=== PATIENT | male | born 1955 | race Caucasian/White ===

== ENCOUNTER 2021-11-21 05:37 | Inpatient (IN) | payer MEDICARE ==
[2021-11-13 13:49] LABS: BASOPHILS % (AUTO) 0.5 % (0-1); EOSINOPHILS # (AUTO) 0.1 X10'3 (0-0.9); EOSINOPHILS % (AUTO) 1.2 % (0-6); HEMATOCRIT 46.6 % (42.0-52.0); HEMOGLOBIN 16.1 g/dl (14.0-17.9); LYMPHOCYTES # (AUTO) 1.8 X10'3 (1.1-4.8); LYMPHOCYTES % (AUTO) 26.8 % (21-51); MEAN CORPUSCULAR HEMOGLOBIN 32.1 PG (27.0-31.0); MEAN CORPUSCULAR HGB CONC 34.5 g/dL (33.0-36.5); MEAN CORPUSCULAR VOLUME 93.1 FL (78-98); MEAN PLATELET VOLUME 7.9 FL (7.4-10.4); MONOCYTES # (AUTO) 0.5 X10'3 (0-0.9); NEUTROPHILS # (AUTO) 4.3 X10'3 (1.8-7.7); NEUTROPHILS % (AUTO) 64.5 % (42-75); PLATELET COUNT 208 X10'3 (140-440); RED CELL DISTRIBUTION WIDTH 13.1 % (11.5-14.5); WHITE BLOOD COUNT 6.6 X10'3 (4.5-11.0)
[2021-11-13 14:06] LABS: ALANINE AMINOTRANSFERASE 23 U/L (12-78); ALBUMIN 4.4 G/DL (3.4-5.0); ALBUMIN/GLOBULIN RATIO 1.2 (1.1-1.5); ALKALINE PHOSPHATASE 50 IU/L (46-116); ANION GAP 14 (8-16); ASPARTATE AMINO TRANSFERASE 25 U/L (10-37); BILIRUBIN,TOTAL 0.5 MG/DL (0.1-1.0); BLOOD UREA NITROGEN 25 MG/DL (7-18); BUN/CREATININE RATIO 23.8 (5.4-32.0); CALCIUM 9.3 MG/DL (8.5-10.1); CHLORIDE 107 MMOL/L (99-107); CREATININE 1.05 MG/DL (0.60-1.10); GLUCOSE 86 MG/DL (70-104); POTASSIUM 4.1 MMOL/L (3.5-5.1); SODIUM 140 MMOL/L (135-145); TOTAL CARBON DIOXIDE 18.8 MMOL/L (24-32); eGFR 71 ML/MIN
[2021-11-21] VITALS (24 sets, daily range): BP systolic 101–159; BP diastolic 59–86
[~2021-11-21] VITALS: Ht 180.3 cm; Wt 98.4 kg
[~2021-11-21 05:37] MED LIST: ACET-1025 PO; IBUP-1984 PO; SUMA50TA PO; VANCOMYCIN INJ 1000 MG in NORMAL SALINE 250ml IV.SOLN IV ONE; cefazolin/dext.iso 2gm/50ml IV ONE; famotidine 20mg tablet PO ONE; ringers solution, lacted 1,000 ML IV SCH; tranexamic acid 650mg tablet PO ONE
[2021-11-21] MEDS ORDERED: ROPIVAcaine 0.5% (5mg/ml) 30ml vial ONE ×2 (06:47→10:53)
[2021-11-21] MEDS ORDERED: ketorolac trometh. 30mg/ml inj. ONE (06:48)
[2021-11-21] MEDS ORDERED: tetracaine 1% (10mg/ml) pres. free inj. ONE (07:42)
[2021-11-21] MEDS ORDERED: MIDAZolam 1mg/ml 10ml vial ONE (07:45)
[2021-11-21] MEDS ORDERED: fentaNYL/PF 50MCG/1 ML 2ML syringe ONE (07:45)
[2021-11-21] MEDS ORDERED: ondansetron/PF 4mg/2ml inj IV PRN ×2 (08:55→10:55)
[2021-11-21] MEDS ORDERED: morphine 4 MG/ML inj SYRINge IV PRN (08:55)
[2021-11-21] MEDS ORDERED: ringers solution, lacted 1,000 ML IV SCH (08:55)
[2021-11-21] MEDS ORDERED: proCHLORperazine 10 MG/2 ml inj IV PRN (08:55)
[2021-11-21] MEDS ORDERED: meperidine/PF 25mg/ml syringe IV PRN ×3 (08:55)
[2021-11-21] MEDS ORDERED: morphine 2 MG/ML inj. syringe IV PRN (08:55)
[2021-11-21] MEDS ORDERED: propofol inj 20 ML IV ONE ×2 (10:53)
[2021-11-21] MEDS ORDERED: HYDROmorphone inj. 0.5 MG/0.5 ML DISP.SYRIN IV PRN (10:55)
[2021-11-21] MEDS ORDERED: ibuprofen tablet 400 MG TABLET PO PRN (10:55)
[2021-11-21] MEDS ORDERED: HYDROmorphone 1 mg/ml syringe IV PRN (10:55)
[2021-11-21] MEDS ORDERED: magnesium hydroxide 30ml (MOM) UD suspension PO PRN (10:55)
[2021-11-21] MEDS: potassium cl 20mEq in 1/2 NS 1,000 ML IV SCH ×2 (10:55→17:01)
[2021-11-21] MEDS ORDERED: diphenhydrAMINE 25mg capsule PO PRN ×2 (10:55)
[2021-11-21] MEDS ORDERED: bisacodyl 10mg suppository rectal RC PRN (10:55)
[2021-11-21] MEDS ORDERED: non-formulary drug (Acetaminophen (Tylenol Extra Strength) 2 TAB) PO PRN (10:55)
[2021-11-21] MEDS ORDERED: acetaminophen 325mg tablet PO PRN (10:55)
[2021-11-21] MEDS ORDERED: oxyCODONE IR 5mg (immed. release) tablet PO PRN (10:55)
--- NOTE | 2021-11-21 10:57 | NUR ---
Received from OR via , accompanied by Anesthesiologist DR LANG and report given by Anesthesiolgist. PT PRESENT WITH 20G LEFT HAND, GALLARDO CATHETER, DRESSING ON LEFT KNEE DRY AND INTACT WITH POWDER PAC. VSS Addendum: 11/21/21 at 1124 by Ritu Sewell RN, RN Amended: Links added.
--- NOTE | 2021-11-21 11:00 | NUR ---
PT CAME OUT OF THE OR WITH FC WITH ZERO OUTPUT. GALLARDO CATHETER WAS FLUSHED WITH 100 MLS OF WARM STRERILE SALLINE, URINE IS NOW FLOWING FROM FC, COLOR IS BLOOD TINGED URINE. Addendum: 11/21/21 at 1142 by Ritu Sewell RN, RN Amended: Links added.
[2021-11-21] MEDS ORDERED: SUMAtriptan 25 MG tablet PO PRN (11:05)
[2021-11-21 11:12] LABS: APPEARANCE,SYNOVIAL FLUID HAZY; COLOR,SYNOVIAL FLUID YELLOW
[2021-11-21 11:13] LABS: LYMPHOCYTES,SYNOVIAL FLUID 85 % (0-75); MONOCYTES,SYNOVIAL FLUID 10 % (0-0); NEUTROPHILS,SYNOVIAL FLUID 5 % (0-25); SYN RBC 330 /CU MM (0); SYN WBC 470 /CU MM (0-200)
--- NOTE | 2021-11-21 12:57 | NUR ---
Report called to receiving nurse KATIE BLANCHARD. Transferred via [facility]ED Belongings SENT TO PT ROOM 340A . Special Issues communicated to receiving nurse. Addendum: 11/21/21 at 1303 by Ritu Sewell RN RN Amended: Links added.
--- NOTE | 2021-11-21 13:20 | NUR ---
1310 Received Pt via bed to room 340A but should have gone to 348A. pt was changed to new room. Bed Low, VSS, call light in reach. Oriented to room & POC. Left kne with no visible bleeding. wrap and ICE in place. Pt rates pain 8/ but just received Demoerol prior to coming to unit. Will monitor and treat per orders.
[2021-11-21] MEDS: acetaminophen 325mg tablet PO SCH ×2 (14:15→21:08)
[2021-11-21] MEDS: ceFAZolin/D5W- 1GM premix 50 ML IV SCH (17:01)
--- NOTE | 2021-11-21 18:40 | NUR ---
Patient in room [facility]. I have received report from Jennifer BLACNHARD and had the opportunity to ask questions and assume patient care.
--- NOTE | 2021-11-21 18:52 | NUR ---
Problems reprioritized. Patient report given, questions answered & plan of care reviewed with SANTO Chapman.
[2021-11-21] MEDS ORDERED: vancomycin/NS 1 GM ADD-VANTAGE 250 ML IV SCH (20:00)
[2021-11-21] MEDS: sennosides 8.6mg tablet PO SCH (21:09)
[2021-11-21] MEDS: oxyCODONE IR 5mg (immed. release) tablet PO PRN (21:12)
[2021-11-22] MEDS: ceFAZolin/D5W- 1GM premix 50 ML IV SCH (00:09)
[2021-11-22] MEDS: potassium cl 20mEq in 1/2 NS 1,000 ML IV SCH (02:33)
[2021-11-22] MEDS: acetaminophen 325mg tablet PO SCH ×4 (02:34→20:26)
[2021-11-22] MEDS: oxyCODONE IR 5mg (immed. release) tablet PO PRN (06:22)
--- NOTE | 2021-11-22 06:40 | NUR ---
Problems reprioritized. Patient report given, questions answered & plan of care reviewed with Xu BLANCHARD.
--- NOTE | 2021-11-22 06:52 | NUR ---
Patient in room [facility]. I have received report from kelle watkins and had the opportunity to ask questions and assume patient care.
[2021-11-22 07:08] LABS: BASOPHILS % (AUTO) 0.2 % (0-1); EOSINOPHILS % (AUTO) 0 % (0-6); HEMATOCRIT 34.7 % (42.0-52.0); HEMOGLOBIN 12.2 g/dl (14.0-17.9); LYMPHOCYTES # (AUTO) 0.9 X10'3 (1.1-4.8); LYMPHOCYTES % (AUTO) 8.5 % (21-51); MEAN CORPUSCULAR HEMOGLOBIN 32.4 PG (27.0-31.0); MEAN CORPUSCULAR HGB CONC 35.1 g/dL (33.0-36.5); MEAN CORPUSCULAR VOLUME 92.3 FL (78-98); MEAN PLATELET VOLUME 8.6 FL (7.4-10.4); MONOCYTES # (AUTO) 1.2 X10'3 (0-0.9); MONOCYTES % (AUTO) 12.2 % (2-12); NEUTROPHILS % (AUTO) 79.1 % (42-75); PLATELET COUNT 208 X10'3 (140-440); RED BLOOD COUNT 3.76 X10'6 (4.70-6.10); RED CELL DISTRIBUTION WIDTH 13.1 % (11.5-14.5); WHITE BLOOD COUNT 10.1 X10'3 (4.5-11.0)
[2021-11-22 07:52] LABS: ANION GAP 9 (8-16); CHLORIDE 105 MMOL/L (99-107); POTASSIUM 4.4 MMOL/L (3.5-5.1); SODIUM 140 MMOL/L (135-145); TOTAL CARBON DIOXIDE 25.8 MMOL/L (24-32)
[2021-11-22 08:00] VITALS: BP 119/55
[2021-11-22] MEDS: aspirin 325mg tablet PO SCH (08:44)
[2021-11-22 11:00] VITALS: BP 129/67
[2021-11-22 11:49] LABS: CLARITY,URINE CLOUDY (Clear); COLOR,URINE YELLOW (Yellow); GLUCOSE, URINE NEGATIVE (Neg); KETONES,URINE NEGATIVE (Neg); LEUKOCYTE ESTERASE ,URINE NEGATIVE (Neg); NITRITES, URINE NEGATIVE (Neg); OCCULT BLOOD,URINE LARGE (Neg); PH,URINE 5.5 (4.8-8.0); PROTEIN,URINE 100 mg/dl (Neg); UROBILINOGEN,URINE 0.2 E.U/dL (0.2-1.0)
--- NOTE | 2021-11-22 11:50 | NUR ---
pt bladder scanned per PA chestney, had 430 ml in bladder will straight cath pt.
[2021-11-22] MEDS ORDERED: tamsulosin 0.4mg capsule PO STA (12:07)
[2021-11-22 12:14] LABS: UA COLLECTION TYPE NON-SPECIFIED
[2021-11-22 12:15] LABS: BACTERIA,URINE FEW /HPF (Neg); MUCUS STRANDS MODERATE /LPF (Neg); RBC,URINE 50-100 /HPF (0-2); SQUAMOUS EPITHELIAL CELL,UR FEW /LPF (FEW)
[2021-11-22 12:16] LABS: AMORPHOUS URATES 1+
--- NOTE | 2021-11-22 15:30 | NUR ---
straight cath pt unsuccessful unable to get urine out. ZARIA shane aware and called urologist josh to follow up on the pt.
[2021-11-22] MEDS ORDERED: LIDOcaine 2% 10ml TOPICAL JELLY (Urojet) MM ONE (16:30)
--- NOTE | 2021-11-22 18:34 | NUR ---
Problems reprioritized. Patient report given, questions answered & plan of care reviewed with Tati BLANCHARD.
[2021-11-22 20:00] VITALS: BP 115/60
[2021-11-22] MEDS: sennosides 8.6mg tablet PO SCH (20:25)
[2021-11-22] MEDS: celeCOXIB 100mg capsule PO SCH (20:27)
[2021-11-23] VITALS: BP 112/58
[2021-11-23] MEDS: acetaminophen 325mg tablet PO SCH ×2 (02:00→07:57)
[2021-11-23 06:10] LABS: BASOPHILS % (AUTO) 0.2 % (0-1); EOSINOPHILS % (AUTO) 0 % (0-6); HEMATOCRIT 27.4 % (42.0-52.0); HEMOGLOBIN 9.8 g/dl (14.0-17.9); LYMPHOCYTES # (AUTO) 1.7 X10'3 (1.1-4.8); LYMPHOCYTES % (AUTO) 14.5 % (21-51); MEAN CORPUSCULAR HEMOGLOBIN 32.7 PG (27.0-31.0); MEAN CORPUSCULAR HGB CONC 35.6 g/dL (33.0-36.5); MEAN CORPUSCULAR VOLUME 91.9 FL (78-98); MEAN PLATELET VOLUME 8.5 FL (7.4-10.4); MONOCYTES # (AUTO) 1.2 X10'3 (0-0.9); MONOCYTES % (AUTO) 10.7 % (2-12); NEUTROPHILS # (AUTO) 8.5 X10'3 (1.8-7.7); NEUTROPHILS % (AUTO) 74.6 % (42-75); PLATELET COUNT 178 X10'3 (140-440); RED BLOOD COUNT 2.98 X10'6 (4.70-6.10); RED CELL DISTRIBUTION WIDTH 12.9 % (11.5-14.5); WHITE BLOOD COUNT 11.4 X10'3 (4.5-11.0)
[2021-11-23] MEDS: aspirin 325mg tablet PO SCH (07:54)
[2021-11-23] MEDS: celeCOXIB 100mg capsule PO SCH (07:58)
[2021-11-23 08:00] VITALS: BP 115/64
[2021-11-23] MEDS ORDERED: acetaminophen 325mg tablet PO PRN (10:55)
[2021-11-23 11:00] VITALS: BP 112/52
[2021-11-23] MEDS ORDERED: SULF1TAB45 PO (11:17)
== END 2021-11-23 13:00 | disposition home or self-care (01) | DRG 467 ==
LOC: PAS 05:37 → EDSTATUS 07:45 → PAS IN 10:38 → SUR 3N 10:58
PROVIDERS: ADMIT Orthopaedic Surgery; ATTEND Orthopaedic Surgery
PROC: 0SRD0J9 Replacement of Left Knee Joint with Synthetic Substitute, Cemented, Open Approach (ICD-10-PCS; 2021-11-21)
PROC: 0SPD0JZ Removal of Synthetic Substitute from Left Knee Joint, Open Approach (ICD-10-PCS; principal; 2021-11-21 07:41)
PROC: 0T7D8ZZ Dilation of Urethra, Via Natural or Artificial Opening Endoscopic (ICD-10-PCS; 2021-11-22)
PROC: 0T9B80Z Drainage of Bladder with Drainage Device, Via Natural or Artificial Opening Endoscopic (ICD-10-PCS; 2021-11-22)
DX: T84.033A Mechanical loosening of internal left knee prosthetic joint, initial encounter (principal); S37.30XA Unspecified injury of urethra, initial encounter; T84.82XA Fibrosis due to internal orthopedic prosthetic devices, implants and grafts, initial encounter; M17.11 Unilateral primary osteoarthritis, right knee; Z20.822 Contact with and (suspected) exposure to COVID-19; G43.909 Migraine, unspecified, not intractable, without status migrainosus; Y79.2 Prosthetic and other implants, materials and accessory orthopedic devices associated with adverse incidents; N35.919 Unspecified urethral stricture, male, unspecified site; D50.0 Iron deficiency anemia secondary to blood loss (chronic); X58.XXXA Exposure to other specified factors, initial encounter; Y92.238 Other place in hospital as the place of occurrence of the external cause; Y99.8 Other external cause status; Z88.0 Allergy status to penicillin; Y92.89 Other specified places as the place of occurrence of the external cause; Y93.89 Activity, other specified
CPT/HCPCS: 36415; 80051; 80053; 81001; 82948; 85025; 87070; 87075; 87081; 87088; 89051; 93005; 97110; 97116; 97161; 97530; A4215; A7000; C1713; C1758; C1776; G0378; J0690; J0780; J1170; J1885; J2175; J2250; J2405; J2704; J2795; J3010; J3370; J3480; J3490; J7120; U0003; U0005